=== PATIENT | male | born 1985 | race Caucasian/White ===

== ENCOUNTER 2016-10-16 19:13 | Outpatient (CLI) | payer OTHER | END 2016-10-16 19:14 | disposition home or self-care (01) | DX: G47.10 Hypersomnia, unspecified (principal); G47.8 Other sleep disorders ==

== ENCOUNTER 2016-11-09 14:12 | Outpatient (CLI) | payer OTHER | END 2016-11-09 14:13 | disposition home or self-care (01) | LOC: SC 14:12 | PROVIDERS: ATTEND Nurse Practitioner Family | DX: G47.10 Hypersomnia, unspecified (principal); G47.8 Other sleep disorders; R06.83 Snoring | CPT/HCPCS: 99212; 99214 ==